=== PATIENT | female | born 1975 | race Caucasian/White ===

== ENCOUNTER 2020-03-28 14:27 | Emergency (ER) | payer OTHER ==
[~2020-03-28] VITALS: Ht 175.3 cm; Wt 90.7 kg
[2020-03-28] MEDS ORDERED: PRILOSEC OTC20 MG PO (14:36)
[2020-03-28] MEDS ORDERED: LEVOXYL75 MCG PO (14:36)
[2020-03-28 15:53] LABS: ABSOLUTE BASOPHILS 0.1 thou/uL (0.0-0.2); ABSOLUTE EOSINOPHILS 0.4 thou/uL (0.0-0.7); ABSOLUTE LYMPHOCYTES 2.9 thou/uL (0.8-5.3); ABSOLUTE MONOCYTES 0.6 thou/uL (0.0-1.2); ABSOLUTE NEUTROPHILS 8.1 thou/uL (1.6-8.1); BASOPHILS 0.4 %; CALCIUM 8.8 mg/dL (8.5-10.1); CREATININE 0.8 mg/dL (0.6-1.3); EOSINOPHILS 3.4 %; HEMATOCRIT 41.7 % (37.0-47.0); HEMOGLOBIN 14.2 gm/dL (12.0-15.0); LYMPHOCYTES 23.7 %; MCH 31.5 pg (26.0-34.0); MCHC 34.1 g/dL (28.0-37.0); MCV 92.2 fL (80.0-100.0); MONOCYTES 5.3 %; MPV 7.8 fl. (7.2-11.1); NUCLEATED RBCS 0 /100WBC; PLATELET COUNT* 240 thou/uL (150-400); POLYS 67.2 %; POTASSIUM 3.8 mmol/L (3.5-5.1); RBC 4.52 mil/uL (4.20-5.00); RDW-CV 12.5 % (10.5-14.5)
[2020-03-28 15:58] LABS: APTT 27.9 Seconds (25.0-31.3); PROTIME 10.4 Seconds (9.20-11.50)
[2020-03-28 16:01] LABS: MAGNESIUM 2.3 mg/dL (1.8-2.4); TOTAL BILIRUBIN 0.7 mg/dL (<0.1-1.0); TOTAL PROTEIN 7.4 g/dL (6.4-8.2)
[2020-03-28 17:47] VITALS: BP 129/90
--- NOTE | 2020-03-29 15:56 | EKG ---
[place] [address] ELECTROCARDIOGRAM REPORT Name: JAVIER KOO Room: 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 03/29/20 1556 1432 1432 Jeff Antonio MD, FACC /EPI
== END 2020-03-28 17:48 | disposition home or self-care (01) ==
LOC: M.ERS 14:27
PROVIDERS: Emergency Medicine Emergency Medical Services
DX: R07.89 Other chest pain (principal); Z90.89 Acquired absence of other organs; Z90.49 Acquired absence of other specified parts of digestive tract; Z79.899 Other long term (current) drug therapy; Z88.8 Allergy status to other drugs, medicaments and biological substances

== ENCOUNTER → 2020-05-17 | Outpatient (CLI) | payer OTHER ==
[~2020-05-17] MED LIST: LEVOXYL75 MCG PO; PRILOSEC OTC20 MG PO
== END ==
LOC: M.NUC 11:38
PROVIDERS: ATTEND Internal Medicine Gastroenterology
DX: R10.9 Unspecified abdominal pain (principal)